=== PATIENT | male | born 1990 | race Caucasian/White ===

== ENCOUNTER 2016-12-09 09:16 | Emergency (ER) | payer BC ==
[~2016-12-09] VITALS: Ht 177.8 cm; Wt 90.9 kg
[2016-12-09 09:18] VITALS: BP 157/91; TEMP 97.9
[2016-12-09 10:13] LABS: PH 5 (5-8); SQUAMOUS EPITHELIAL None Seen /hpf; URINE APPEARANCE Hazy; URINE BACTERIA None Seen /hpf; URINE BILIRUBIN Negative (NEGATIVE); URINE BLOOD 3+ (NEGATIVE); URINE COLOR Yellow; URINE GLUCOSE Negative (NEGATIVE); URINE KETONE Trace (NEGATIVE); URINE RBC >50 /hpf; URINE UROBILINOGEN Negative (NEGATIVE); URINE WBC 0-2 /hpf
[2016-12-09] MEDS ORDERED: FLOMAX 0.40.4 MG/CAP PO (10:22)
[2016-12-09] MEDS ORDERED: NORCO 325 MG-51 TAB PO (10:22)
[2016-12-09] MEDS ORDERED: ZOFRAN 4MG T4 MG/TAB PO (10:22)
[2016-12-09 10:35] VITALS: PULSE 98
[2016-12-10 01:03] LABS: CHLAMYDIA/TRACH by PCR Male NOT DETECTED; Neisseria Gon by PCR Male NOT DETECTED
== END 2016-12-09 10:35 | disposition home or self-care (01) ==
LOC: COL.ER 09:16
PROVIDERS: Emergency Medicine
DX: N13.2 Hydronephrosis with renal and ureteral calculous obstruction (principal)
CPT/HCPCS: J1885

== ENCOUNTER → 2016-12-11 | Outpatient (REF) ==
[~2016-12-11] MED LIST: FLOMAX 0.40.4 MG/CAP PO; NORCO 325 MG-51 TAB PO; ZOFRAN 4MG T4 MG/TAB PO
[2016-12-11 12:07] LABS: PROTHROMBIN TIME 11.1 SECONDS (9.7-12.8)
[2016-12-11 12:09] LABS: PARTIAL THROMBOPLASTIN TIME 30.1 SECONDS (26.0-37.0)
== END ==
LOC: ZMSC 11:48
PROVIDERS: Urology
DX: Z01.89 Encounter for other specified special examinations (principal)